=== PATIENT | male | born 1970 | race Caucasian/White ===

== ENCOUNTER 2022-11-20 09:10 | Outpatient (CLI) | payer OTHER, SELFPAY ==
--- NOTE | ~2022-11-20 | XR_ITS ---
XR lumbar spine min 4V DATE: 11/20/2022 09:27 INDICATION: Low back pain TECHNIQUE: AP, lateral, bilateral oblique views, coned lateral lumbosacral view COMPARISON: November 18, 2007 MR lumbar spine FINDINGS: There are 6 functional lumbar vertebrae. First functional lumbar vertebrae show be consider ed T12 for purposes of this report. No spondylolysis or spondylolisthesis is evident. There is moderate to moderately severe degenerative disc disease at L4-5 and L5-S1, and mild degenera tive disease at the remaining lumbar interspaces. IMPRESSION: Multilevel degenerative disc disease, greatest at L4-5 and L5-S1 Reviewed, dictated and finalized at location B.
== END 2022-11-20 09:11 | disposition home or self-care (01) ==
LOC: ANHIMG 09:15
PROVIDERS: PCP Family Medicine; Visit Provider Family Medicine
DX: M51.36 Other intervertebral disc degeneration, lumbar region (principal); M51.37 Other intervertebral disc degeneration, lumbosacral region
CPT/HCPCS: 72110

== ENCOUNTER 2023-11-22 12:48 | Outpatient (CLI) | payer OTHER, SELFPAY ==
--- NOTE | ~2023-11-22 | XR_ITS ---
XR chest 2V 11/22/2023 13:12 Indication: Midsternal chest Procedure: 2 view chest Comparison: No prior studies for comparison. Findings: Elevated right diaphragm. No focal air space disease, pulmonary edema, pleural effusion or suspected pneumothorax. Heart size normal. Impression: 1: No acute cardiopulmonary disease. Reviewed, dictated and finalized at location B. Impression: 1: No acute cardiopulmonary disease.
--- NOTE | 2023-11-22 13:44 | ECG_ITS ---
SEE SCANNED COPY FOR CONFIRMED REPORT MTDD
[2023-11-22 14:25] LABS: Alanine Aminotransferase 28 U/L (6-50); Albumin Level 4.4 g/dL (3.5-5.1); Alkaline Phosphatase 73 U/L (38-126); Anion Gap 7 mmol/L (4-12); Aspartate Amino Transferase 26 U/L (17-59); Bilirubin,Total 0.7 mg/dL (0.2-1.3); Blood Urea Nitrogen 14 mg/dL (9-20); Carbon Dioxide 25 mmol/L (22-30); Chloride 105 mmol/L (98-107); Cholesterol 219 mg/dL (0-200); Estimated Glomerular Filt Rate > 60; Glucose 106 mg/dL (65-110); HDL Direct 40 mg/dL; Potassium 3.8 mmol/L (3.4-5.0); Sodium 137 mmol/L (137-145); Triglycerides 253 mg/dL (<150)
[2023-11-22 14:37] LABS: LDL Cholesterol Direct 123 mg/dL
[2023-11-22 14:55] LABS: Prostate Specific Antigen 0.4 ng/mL (< OR = 4.0)
[2023-11-22 15:03] LABS: Free T4 Free Thyroxine 1.14 ng/mL (0.78-2.19)
== END 2023-11-22 12:49 | disposition home or self-care (01) ==
LOC: ANHIMG 12:51
PROVIDERS: PCP Family Medicine; Visit Provider Physician Assistant
DX: R07.9 Chest pain, unspecified (principal); R53.83 Other fatigue; Z12.5 Encounter for screening for malignant neoplasm of prostate; Z13.1 Encounter for screening for diabetes mellitus; Z13.220 Encounter for screening for lipoid disorders
CPT/HCPCS: 36415; 71046; 80053; 80061; 84153; 84439; 84443; 93005; G0103